=== PATIENT | male | born 1960 | race African-American/Black ===

== ENCOUNTER → 2018-12-21 | Outpatient (CLI) | payer OTHER ==
--- NOTE | 2018-12-21 11:01 | REP ---
RIGHT HIP: Two views. HISTORY: Right hip pain. FINDINGS: Numerous metallic prostate seeds are noted in place. There is fairly advanced osteoarthritic change at the right hip with superior joint space narrowing, femoral head and acetabular spurring, and subcortical cyst formation. There is sclerosis as well. No acute erosive changes seen. Periarticular soft tissues are unremarkable. IMPRESSION: Moderate to advanced osteoarthritis right hip. Status post prostate seed placement. Electronically Signed by Reji Mcnamara MD 12/21/2018 12:33 P
== END ==
LOC: M RAD 08:56
PROVIDERS: ATTEND Surgery
DX: M25.551 Pain in right hip (principal)